=== PATIENT | male | born 1980 | race Caucasian/White ===

== ENCOUNTER 2020-04-07 08:37 | Emergency (ER) | payer MEDICAID ==
[~2020-04-07] VITALS: Ht 180.3 cm; Wt 140.2 kg
[2020-04-07 08:45] VITALS: BP 137/75
--- NOTE | 2020-04-07 08:45 | NUR ---
TO BED # 11 AMBULATORY
--- NOTE | 2020-04-07 08:59 | NUR ---
39 YO MALE PATIENT PRESENTS TO ED WITH LOWER BACK PAIN SINCE MONDAY. PT STATES NO INJURY. PT STATES THAT PAIN IS RELEIVED BY LAYING ON HIS LEFT SIDE AND WALKING OR SITTING MAKES IT WORSE. PAIN DOES NOT RADIATE. DENIES N/V/D; SKIN IS PINK/WARM/DRY; AAOX4 WITH EVEN AND STEADY GAIT; LUNGS CLEAR BL; HR EVEN AND REGULAR; PT DENIES ANY FEVER, CP, SOB, OR COUGH AT THIS TIME; PATIENT STATES PAIN OF 7/10 AT THIS TIME; VSS; PATIENT POSITIONED FOR COMFORT; HOB ELEVATED; BEDRAILS UP X2; BED DOWN. ER MD MADE AWARE OF PT STATUS.
[2020-04-07] MEDS ORDERED: KETOROLAC 30 MG/ML VIAL IM ONE (09:10)
--- NOTE | 2020-04-07 09:18 | NUR ---
ua dip obtained
--- NOTE | 2020-04-07 09:20 | NUR ---
medicated as ordered
[2020-04-07] MEDS ORDERED: MORPHINE SULFATE 5 MG/ML VIAL IM ONE (09:35)
--- NOTE | 2020-04-07 09:40 | NUR ---
continues with c/o pain rated 9/10. additional mad as ordered
[2020-04-07 10:00] VITALS: BP 116/62
--- NOTE | 2020-04-07 10:00 | NUR ---
Patient discharged with v/s stable. Written and verbal after care instructions given and explained. Patient alert, oriented and verbalized understanding of instructions. Ambulatory with steady gait. All questions addressed prior to discharge. ID band removed. Patient advised to follow up with PMD. Rx of NAPROSYN AND EXTRA STRENGTH TYLENOL given. Patient educated on indication of medication including possible reaction and side effects. Opportunity to ask questions provided and answered.
== END 2020-04-07 10:00 | disposition home or self-care (01) ==
LOC: MED 08:37
DX: S39.012A Strain of muscle, fascia and tendon of lower back, initial encounter (principal); X58.XXXA Exposure to other specified factors, initial encounter; Y93.89 Activity, other specified; Y92.89 Other specified places as the place of occurrence of the external cause; Y99.8 Other external cause status
CPT/HCPCS: 81002; 96372; 99284; J1885; J2270

== ENCOUNTER 2020-04-17 12:34 | Emergency (ER) | payer MEDICAID ==
[~2020-04-17] VITALS: Ht 180.3 cm; Wt 108.9 kg
[2020-04-17 12:44] VITALS: BP 107/67
[2020-04-17 13:33] LABS: BASOPHILS # (AUTO) 0.1 K/uL (0.00-0.22); BASOPHILS % (AUTO) 0.5 % (0.0-2.0); EOSINOPHILS # (AUTO) 0.1 K/uL (0-0.4); EOSINOPHILS % (AUTO) 0.5 % (0.0-4.0); HEMATOCRIT 48.9 % (36-52); HEMOGLOBIN 16.3 g/dL (12.0-18.0); LYMPHOCYTES # (AUTO) 2.1 K/uL (2.0-11.5); LYMPHOCYTES % (AUTO) 14.5 % (20.5-51.1); MEAN CORPUSCULAR HEMOGLOBIN 30 pg (27-31); MEAN CORPUSCULAR HGB CONC 33 g/dL (33-37); MEAN CORPUSCULAR VOLUME 88.5 fL (80-94); MONOCYTES # (AUTO) 1.1 K/uL (0.8-1.0); MONOCYTES % (AUTO) 7.9 % (1.7-9.3); NEUTROPHILS # (AUTO) 10.9 K/uL (1.8-7.7); NEUTROPHILS % (AUTO) 76.6 % (42.2-75.2); PLATELET COUNT (AUTO) 258 K/uL (140-450); RED BLOOD CELL COUNT(AUTO) 5.52 MIL/uL (4.20-6.10); RED CELL DISTRIBUTION WIDTH 14.1 % (11.6-13.7); WHITE BLOOD COUNT (AUTO) 14.2 K/uL (4.8-10.8)
[2020-04-17 13:42] LABS: ANION GAP 13.7 (8-16); CARBON DIOXIDE 29.5 mmol/L (21-32); CREATININE 0.9 mg/dL (0.6-1.3); POTASSIUM 4.2 mmol/L (3.5-5.1)
[2020-04-17 13:47] LABS: BILIRUBIN,DIRECT 0.2 mg/dL (0.0-0.3); TOTAL BILIRUBIN 0.9 mg/dL (0.0-1.0)
--- NOTE | 2020-04-17 14:24 | NUR ---
PT AMBULATED TO BED 5
--- NOTE | 2020-04-17 14:25 | NUR ---
URINE COLLECTED AT THIS TIME. SPECIMEN AT BEDSIDE.
--- NOTE | 2020-04-17 14:31 | NUR ---
39 YO M BIB SELF C/O LEFT SIDED LOWER BACK PAIN X 1 WEEK. PAIN SCALE 10/10. NEW ONSET LLQ PAIN 3/10 ALSO NOTED. PT REPORTS DIARRHEA, DENIES NAUSEA AND ABDOMINAL PAIN. NO URINARY PROBLEMS. DENIES ANY RECENT TRAUMA/INJURY TO AREA. IN ER, VSS. ABDOMEN SOFT, NONTENDER. PT ABLE TO AMBULATE WITH CANE. PT RESTING IN BED COMFORTABLY. ERMD MADE AWARE OF PT STATUS. PMH: NONE NKA
[2020-04-17] MEDS ORDERED: HYDROcodone/APAP 5/325 MG 1 TAB TAB PO ONE (15:00)
--- NOTE | 2020-04-17 15:13 | NUR ---
Patient taken to CT scan via gurney by [facility].
[2020-04-17 16:21] VITALS: BP 107/67
--- NOTE | 2020-04-17 16:22 | NUR ---
Patient discharged with v/s stable. Written and verbal after care instructions given and explained. Patient alert, oriented and verbalized understanding of instructions. Ambulatory with steady gait. All questions addressed prior to discharge. ID band removed. Patient advised to follow up with PMD. Rx of [place] 5mg-325mg and Volaren 1% topical gel given. Patient educated on indication of medication including possible reaction and side effects. Opportunity to ask questions provided and answered.
== END 2020-04-17 16:22 | disposition home or self-care (01) ==
LOC: MED 12:34
DX: S39.012A Strain of muscle, fascia and tendon of lower back, initial encounter (principal); Z90.49 Acquired absence of other specified parts of digestive tract; X58.XXXA Exposure to other specified factors, initial encounter; Y93.89 Activity, other specified; Y92.89 Other specified places as the place of occurrence of the external cause; Y99.8 Other external cause status
CPT/HCPCS: 36415; 80048; 80076; 81002; 83690; 85025; 99284